=== PATIENT | male | born 1965 | race Caucasian/White ===

== ENCOUNTER 2017-04-24 08:14 | Day surgery (SDC) | payer OTHER ==
[~2017-04-24 08:14] MED LIST: Ketorolac 10 MG Tab PO PRN; Lactated Ringers 1,000 ML IV SCH; ceFAZolin 2 GM in Premix Bag 1 BAG IV SCH
--- NOTE | 2017-04-24 10:00 | PCM.PREANE ---
Preanesthetic Assessment - Procedure Proposed Procedure: Left shoulder arthroscopic repair - Anesthesia/Transfusion/Family Hx Anesthesia History: Prior Anesthesia Without Reaction Family History of Anesthesia Reaction: No Transfusion History: No Prior Transfusion(s) Intubation History: Unknown - Review of Systems General: No Symptoms Pulmonary: Other (smoker, occasional cough) Cardiovascular: No Symptoms Gastrointestinal: No Symptoms Neurological: Pre-Existing Deficit (pain of left arm due to injury) Other: Reports: None - Physical Assessment NPO Status Date: 04/23/17 NPO Status Time: 21:00 O2 Sat by Pulse Oximetry: 94 Respiratory Rate: 16 Vital Signs: Last Vital Signs Temp 98.6 F 04/24/17 09:14 Pulse 49 L 04/24/17 09:14 Resp 16 04/24/17 09:14 BP 127/93 H 04/24/17 09:14 Pulse Ox 94 L 04/24/17 09:14 Height: 6 ft 1 in Weight: 189 lb ASA Class: 2 Mental Status: Alert & Oriented x3 Airway Class: Mallampati = 2 Dentition: Reports: Normal Dentition Thyro-Mental Finger Breadths: 3 Mouth Opening Finger Breadths: 3 ROM/Head Extension: Limited/Partial Lungs: Clear to Auscultation, Normal Respiratory Effort Cardiovascular: Regular Rate, Regular Rhythm, No Murmurs - Allergies Allergies/Adverse Reactions: Allergies Allergy/AdvReac Type Severity Reaction Status Date / Time animal dander Allergy watery Verified 04/18/17 11:41 eyes/sneezing cat dander Allergy Itching Verified 03/25/17 10:19 kiwi Allergy Facial Verified 03/25/17 10:19 Swelling - Blood Blood Available: No Product(s) Available: None - Anesthesia Plan Pre-Op Medication Ordered: None - Acknowledgements Anesthesia Type Planned: General Anesthesia, Regional Block (planned to do at end procedure PRN) Pt an Appropriate Candidate for the Planned Anesthesia: Yes Alternatives and Risks of Anesthesia Discussed w Pt/Guardian: Yes Pt/Guardian Understands and Agrees with Anesthesia Plan: Yes Additional Comments: family at bedside with exam, interview and questions answered. PreAnesthesia Questionnaire HEENT History: Reports: Allergic Rhinitis Cardiovascular History: Reports: Heart Murmur, Other (See Below) Other Cardiovascular History: heart murmur as a child Gastrointestinal History: Reports: None Genitourinary History: Reports: None Musculoskeletal History: Reports: Arthritis, Fracture Other Musculoskeletal History: hx fx foot Neurological History: Reports: None - Past Surgical History Head Surgeries/Procedures: Reports: None GI Surgical History: Reports: Hernia, Inguinal Other GI Surgeries/Procedures: hx andrés inguinal hernia repair Male Surgical History: Reports: Vasectomy Neurological Surgical History: Reports: Lumbar Spine Other Neurological Surgeries/Procedures: hx back surgery - SUBSTANCE USE Smoking Status *Q: Current Every Day Smoker Tobacco Use Within Last Twelve Months: Cigarettes Days Per Week of Alcohol Use: 7 Number of Drinks Per Day: 2 Total Drinks Per Week: 14 Recreational Drug Use History: No - HOME MEDS Home Medications: Home Meds Acetaminophen [Tylenol Extra Strength] 2 tab PO ASDIRECTED PRN 04/18/17 [History ] Ibuprofen 3 tab PO ASDIRECTED PRN 04/18/17 [History] Naproxen Sodium [Aleve] 1 tab PO ASDIRECTED PRN 04/18/17 [History] - CURRENT (IN HOUSE) MEDS Current Meds: Current Medications Cefazolin Sodium/Dextrose 2 gm (/ Premix) 50 mls @ 100 mls/hr IV ONCALL MARITZA Lactated Ringer's (Ringers, Lactated) 1,000 mls @ 100 mls/hr IV ASDIRECTED MAIRTZA Last Admin: 04/24/17 08:45 Dose: 100 mls/hr Ketorolac Tromethamine (Toradol) 10 mg PO Q6H PRN PRN Reason: Pain Stop: 04/29/17 08:01
[2017-04-24] MEDS ORDERED: Propofol 200 MG/20 ML SDV ONE ×2 (10:35→12:02)
[2017-04-24] MEDS ORDERED: Lidocaine 2% 5 ML SDV ONE (10:35)
[2017-04-24] MEDS ORDERED: Ondansetron 4 MG/2 ML SDV ONE (10:36)
[2017-04-24] MEDS ORDERED: Ketorolac 30 MG/ML SDV ONE (10:36)
[2017-04-24] MEDS ORDERED: Succinylcholine/Normal Saline 200 MG/10 ML Syringe ONE (10:36)
[2017-04-24] MEDS ORDERED: Midazolam 1 MG/ML 2 ML SDV ONE (10:36)
[2017-04-24] MEDS ORDERED: fentaNYL 100 MCG/2 ML SDV ONE ×2 (10:36→11:52)
[2017-04-24] MEDS ORDERED: Bupivacaine 0.5% 10 ML SDV ONE (11:26)
[2017-04-24] MEDS ORDERED: Bupivacaine 25%/EPINEPHrine/PF 30 ML ONE (11:26)
[2017-04-24] MEDS ORDERED: hydrALAZINE 20 MG/ML SDV IVPUSH ONE (11:38)
--- NOTE | 2017-04-24 11:41 | PCM.POSTAN ---
POST ANESTHESIA ASSESSMENT - MENTAL STATUS Mental Status: Alert, Oriented - VITAL SIGNS Blood Pressure: 163/109 (will treat with apresoline) - RESPIRATORY Respiratory Status: Respiratory Rate WNL, Airway Patent, O2 Saturation Stable - CARDIOVASCULAR CV Status: Pulse Rate WNL, Blood Pressure Stable - GASTROINTESTINAL GI Status: No Symptoms - PAIN Pain Score: 9 (difficult to assess) - POST OP HYDRATION Hydration Status: Adequate & Stable
[2017-04-24] MEDS ORDERED: Acetaminophen/HYDROcodone 325-10 MG Tab PO PRN (13:27)
[2017-04-24] MEDS ORDERED: traMADol 50 MG Tab PO PRN (13:27)
--- NOTE | 2017-04-24 13:29 | PCM.OPNOTE ---
- General Post-Op/Procedure Note Date of Surgery/Procedure: 04/24/17 Operative Procedure(s): L shoulder arthroscopy with SAD, debridement of degenerative anterior labral tear, RTCR Post-Op Diagnosis: L shoulder impingement, degenerative anterior labral tear, RTC tear Anesthesia Technique: General ET Tube Primary Surgeon: Mary Ruiz Data Manager: Gely Rubio in mLs: 10 Condition: Good Free Text/Narrative:: #[id number]
[2017-04-24] MEDS ORDERED: fentaNYL 100 MCG/2 ML SDV IVPUSH PRN (13:45)
[2017-04-24] MEDS ORDERED: HYDROmorphone 2 MG/ML Syringe IVPUSH ONE (13:45)
--- NOTE | 2017-04-24 14:27 | PCM.POSTAN ---
POST ANESTHESIA ASSESSMENT - MENTAL STATUS Mental Status: Alert, Oriented - RESPIRATORY Respiratory Status: Respiratory Rate WNL, Airway Patent, O2 Saturation Stable - CARDIOVASCULAR CV Status: Pulse Rate WNL, Blood Pressure Stable - GASTROINTESTINAL GI Status: No Symptoms - PAIN Pain Score: 2 (numb in arm; s/p interscalene block) - POST OP HYDRATION Hydration Status: Adequate & Stable - OBSERVATIONS Free Text/Narrative:: to Phase II
--- NOTE | 2017-04-24 14:33 | PCM.SN ---
- Free Text/Narrative Note: Interscalene block with 0.375% bupivacaine (40 ml). sterile procedure with electrostim needle, negative aspiration throughout block placement, twitch via neurostimulation needle- good deltoid twitch. Block seems intact at this time... will await more wakefulness in him.
--- NOTE | 2017-04-24 16:18 | PCM48HPAN ---
Post Anesthesia Note - EVALUATION WITHIN 48HRS OF ANESTHETIC Vital Signs in Normal Range: Yes Patient Participated in Evaluation: Yes Respiratory Function Stable: Yes Airway Patent: Yes Cardiovascular Function Stable: Yes Hydration Status Stable: Yes Pain Control Satisfactory: Yes Nausea and Vomiting Control Satisfactory: Yes Mental Status Recovered: Yes - COMMENTS/OBSERVATIONS Free Text/Narrative:: to home with family with block pain relief.
--- NOTE | 2017-04-24 18:28 | OR ---
SURGEON: Mary Ruiz MD DATE OF PROCEDURE: 04/24/2017 PREOPERATIVE DIAGNOSES: 1. Left shoulder impingement syndrome. 2. Left shoulder rotator cuff tear. POSTOPERATIVE DIAGNOSES: 1. Left shoulder impingement syndrome. 2. Left shoulder rotator cuff tear. 3. Left shoulder degenerative anterior labral tear. PROCEDURES: Left shoulder arthroscopy with 1. Subacromial decompression with release of coracoacromial ligament and acromioplasty. 2. Limited debridement including debridement of degenerative anterior labral tear. 3. Arthroscopic rotator cuff repair surgeon. RADIOLOGY PHYSICIAN: Gely Rubio PA-C. ANESTHESIA: General. ESTIMATED BLOOD LOSS: 10 mL. TOURNIQUET TIME: 0 minutes. COMPLICATIONS: None. DVT PROPHYLAXIS: PAS boots to bilateral lower extremities. IMPLANTS USED: Two Arthrex 4.5 mm corkscrew anchors (Bio[employer]), 1 Arthrex 5.5 mm corkscrew anchor (Bio[employer]posite), and one Arthrex 4.75 mm SwiveLock anchor ([employer]). BRIEF HISTORY: Michael is a 52-year-old male, who sustained an injury to his left shoulder while at work. An MRI did confirm a tear of the rotator cuff. At that time, it was recommended that he undergo surgical treatment due to the acute nature of his injury. The risks and goals of the procedure were discussed with the patient and were documented preoperatively. He agreed to proceed. DESCRIPTION OF PROCEDURE: The patient was properly identified and brought to the operating room. He was transferred from the OR cart and placed on operating table in supine position. General anesthesia was administered. After adequate anesthesia was obtained, the patient was placed into a beach-chair position, care was taken to pad all bony prominences, his head was secured. The left upper extremity was then prepped in standard fashion using ChloraPrep solution. It was then sterilely draped. A time-out was performed to ensure correct site and procedure. Preoperative antibiotics were given. The surgical site had been marked preoperatively. The bone pen was made to identify the bony landmarks. Approximately 30 mL of normal saline was introduced into the glenohumeral joint. A posterior portal was established. Blunt trocar and cannula were introduced into the glenohumeral joint. Camera, inflow, and outflow were assembled. The rotator interval showed mild synovitis. The subscapularis was visualized. An anterior portal was then established. The subscapularis was probed and found to be intact. No loose bodies were identified in the subscapular recess. The biceps tendon was then identified. Its attachment to the superior glenoid appeared intact. There was no evidence of tearing. The biceps was pulled into the joint. He did have some small longitudinal fissures distally, however, the patient did not complain of any biceps pain preoperatively, and I elected to leave the biceps intact. The labrum was then inspected. Degenerative tear of the anterior labrum was identified. Electrocautery was used to perform debridement of this tear. The posterior labrum appeared intact. Both the glenoid and articular surface of the humeral head showed no signs of degeneration. The axillary pouch showed no loose bodies. The shoulder was then brought into an abducted and externally rotated position. The bare area was noted posteriorly. As I progressed forward, there was found to be a full-thickness tear of the anterior portion of the supraspinatus tendon. The arm was then brought back into a neutral position. Instruments were removed. We were removed from the glenohumeral joint. I then entered the subacromial space. A lateral portal was established. Using combination of the shaver and electrocautery, an extensive bursectomy was performed. The cortical acromial ligament was released off the anterior aspect of the acromion. A downsloping acromion was noted and acromioplasty was performed. This provided good decompression of the subacromial space. The rotator cuff was then inspected. A large crescentic tear a tear of the anterior portion of the supraspinatus was identified. I did use a cuff grasper and was able to easily reapproximate the cuff tendon to its footprint. A 5.0 mm sarika was used to perform the acromioplasty as well as roughen the surface just lateral to the articular surface for repair. Since the repair was quite large, I elected to place 3 corkscrew anchors. The first corkscrew anchor was placed anteriorly. The bone was quite good and the anchor did break. I removed a portion of the broken anchor. I was able to pull on the suture with quite a bit of force and no dislodgement of the anchor was noted from the bone. I elected to leave this in place. An additional anchor was placed just posterior to this without difficulty. The posterior anchor also showed sign of breakage with insertion, and I did change the trajectory of my awl. A 5.5 mm corkscrew anchor was placed into the posterior and lateral portion of the humeral head and this provided better pullout strength. The sutures were then tied in a [id number] fashion. The cuff was able to be reapproximated to the lateral footprint. Following this, I elected to incorporate sutures from both the anterior and posterior corkscrews into a lateral row SwiveLock, and this provided further compression of the rotator cuff to the footprint. At the completion, the repair was probed. It was found to be intact and nearly watertight. The instruments were then removed from the shoulder. It should be noted that another lateral portal was placed for suture management and passage of the sutures. I did use passport cannulas in both of the lateral portals to assist with the soft tissue and suture management. The portal sites were then closed with 3-0 nylon. Xeroform gauze was placed over the wound and a bulky dressing was applied. He was then placed back into a supine position. He was left under the care of Anesthesia for placement of the interscalene block. BERNIE / LAILA /[id number]
== END 2017-04-24 15:30 | disposition home or self-care (01) ==
LOC: MW.SDS 08:14 → MERGE 08:14 → EDSEX 09:30 → MW.SDS 15:30
PROVIDERS: ATTEND Orthopaedic Surgery
DX: M75.42 Impingement syndrome of left shoulder (principal); M75.122 Complete rotator cuff tear or rupture of left shoulder, not specified as traumatic; S43.492A Other sprain of left shoulder joint, initial encounter; F17.210 Nicotine dependence, cigarettes, uncomplicated; M19.90 Unspecified osteoarthritis, unspecified site; J30.81 Allergic rhinitis due to animal (cat) (dog) hair and dander; Z91.018 Allergy to other foods; Z98.890 Other specified postprocedural states
CPT/HCPCS: 29826; 29827; J0690; J1885; J2250; J2405; J3010; J7120; 01630; 64415; 88304; C1713; J2704

== ENCOUNTER 2019-08-19 16:16 | Emergency (ER) | payer OTHER, BC ==
[2019-08-19] MEDS ORDERED: diphenhydrAMINE 50 MG/ML SDV IM ONE (17:13)
--- NOTE | 2019-08-19 17:36 | EDM.PDOC ---
ED HPI GENERAL MEDICAL PROBLEM - General Chief Complaint: Allergic Reaction Stated Complaint: ALLERGIC REACTION Time Seen by Provider: 08/19/19 17:11 Source of Information: Reports: Patient History Limitations: Reports: No Limitations - History of Present Illness INITIAL COMMENTS - FREE TEXT/NARRATIVE: HISTORY AND PHYSICAL: History of present illness: Patient is a 54-year-old male who presents to the emergency room today with complaints of an allergic reaction to cat exposure. 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 He states anytime he is around cats he needs "a shot of Benadryl ". He states that he typically has to receive the IM Benadryl as the oral administration route is not as effective. He complains of itchy watery eyes and feeling like he has some slight swelling around the eyes. Although he was exposed to the cat he did not touch the cat and has been wearing his leather gloves. Patient denies any fever, chills, headache, change in vision, syncope or near syncope. Denies any chest pain, back pain, shortness of breath or cough. Denies any abdominal pain, nausea, vomiting, diarrhea, constipation or dysuria. Has not noted any blood in urine or stool. Patient has been eating and drinking appropriately. Review of systems: As per history of present illness and below otherwise all systems reviewed and negative. Past medical history: As per history of present illness and as reviewed below otherwise noncontributory. Surgical history: As per history of present illness and as reviewed below otherwise noncontributory. Social history: See social history for further information Family history: As per history of present illness and as reviewed below otherwise noncontributory. Physical exam: General: Well-developed and well-nourished 54-year-old male. Alert and oriented. Nontoxic appearing and in no acute distress. HEENT: Atraumatic, normocephalic, pupils equal and reactive bilaterally, negative for conjunctival pallor or scleral icterus, scleral injection bilaterally with clear watery drainage, mucous membranes moist, TMs normal bilaterally, throat clear, neck supple, nontender, trachea midline. No drooling or trismus noted. No meningeal signs. No hot potato voice noted. Lungs: Clear to auscultation, breath sounds equal bilaterally. Heart: S1S2, regular rate and rhythm without overt murmur Abdomen: Soft, nondistended, nontender. Skin: Intact, warm, dry. No lesions or rashes noted. Extremities: Atraumatic, moves all extremities per self without difficulty or deficits, negative for cords or calf pain. Neurovascular unremarkable. Neuro: Awake, alert, oriented. Cranial nerves II through XII unremarkable. Cerebellum unremarkable. Motor and sensory unremarkable throughout. Exam nonfocal. Notes: Patient declines wanting p.o. Benadryl. We will give him Benadryl IM. His physical exam is normal with the exception of allergy related symptoms from the cat dander exposure. Supportive care measures were reviewed and discussed. Voices understanding and is agreeable to plan of care. Denies any further questions or concerns at this time. Diagnostics: None Therapeutics: Benadryl IM Prescription: None Impression: Allergies, cat Plan: 1. Avoid triggers. 2. While symptomatic continue to routinely take Benadryl 50mg every 4-6 hours and Zantac 150mg twice daily. Take the Medrol dose pack as prescribed. 3. You may use topical calamine lotion, cool tempid oatmeal baths, Aveeno bath/ lotions. 4. Please follow up with your Primary care doctor as we discussed. Return to the ED as needed and as discussed. Definitive disposition and diagnosis as appropriate pending reevaluation and review of above. - Related Data Allergies Allergy/AdvReac Type Severity Reaction Status Date / Time animal dander Allergy watery Verified 08/19/19 17:00 eyes/sneezing cat dander Allergy Itching Verified 08/19/19 17:00 kiwi Allergy Facial Verified 08/19/19 17:00 Swelling Home Meds: Home Meds Ibuprofen 3 tab PO ASDIRECTED PRN 04/18/17 [History] Naproxen Sodium [Aleve] 1 tab PO ASDIRECTED PRN 04/18/17 [History] Hydrocodone/Acetaminophen [Girard 10-325 Tablet] 1 - 2 tab PO Q4H PRN #80 tablet 04/24/17 [Rx] traMADol [Ultram] 1 - 2 tab PO Q4H PRN #80 tablet 04/24/17 [Rx] Past Medical History HEENT History: Reports: Allergic Rhinitis Cardiovascular History: Reports: Heart Murmur, Other (See Below) Other Cardiovascular History: heart murmur as a child Respiratory History: Reports: None Gastrointestinal History: Reports: GERD, None Genitourinary History: Reports: None Musculoskeletal History: Reports: Arthritis, Fracture, Other (See Below) Other Musculoskeletal History: hx fx foot Neurological History: Reports: None Psychiatric History: Reports: None Endocrine/Metabolic History: Reports: None Hematologic History: Reports: None Immunologic History: Reports: None Oncologic (Cancer) History: Reports: None Dermatologic History: Reports: None - Infectious Disease History Infectious Disease History: Reports: None - Past Surgical History Head Surgeries/Procedures: Reports: None HEENT Surgical History: Reports: None Cardiovascular Surgical History: Reports: None Respiratory Surgical History: Reports: None GI Surgical History: Reports: None Male Surgical History: Reports: Vasectomy Endocrine Surgical History: Reports: None Neurological Surgical History: Reports: Discectomy, Lumbar Spine Musculoskeletal Surgical History: Reports: None Oncologic Surgical History: Reports: None Dermatological Surgical History: Reports: None Social & Family History - Family History Family Medical History: Noncontributory - Tobacco Use Smoking Status *Q: Current Every Day Smoker Years of Tobacco use: 33 Packs/Tins Daily: 0.7 - Caffeine Use Caffeine Use: Reports: Coffee - Recreational Drug Use Recreational Drug Use: No ED ROS ALLERGIC REACTION - Review of Systems Review Of Systems: Comprehensive ROS is negative, except as noted in HPI. ED EXAM GENERAL NO PERIP PULSE - Physical Exam Exam: See Below (See dictation) Course - Vital Signs Last Recorded V/S: Last Vital Signs Temp 96.8 F L 08/19/19 17:01 Pulse 68 08/19/19 17:01 Resp 18 08/19/19 17:01 BP 121/73 08/19/19 17:01 Pulse Ox 93 L 08/19/19 17:01 - Orders/Labs/Meds Meds: Medications Discontinued Medications Generic Name Dose Route Start Last Admin Trade Name Freq PRN Reason Stop Dose Admin Diphenhydramine HCl 50 mg 08/19/19 17:13 08/19/19 17:22 Benadryl IM 08/19/19 17:14 50 mg ONETIME ONE Administration Departure - Departure Time of Disposition: 17:36 Disposition: Home, Self-Care 01 Clinical Impression: Cat allergies - Discharge Information Instructions: Allergies, Adult, [id number] Referrals: Eliazar Barbour MD [Primary Care Provider] - Forms: ED Department Discharge Additional Instructions: The following information is given to patients seen in the emergency department who are being discharged to home. This information is to outline your options for follow-up care. We provide all patients seen in our emergency department with a follow-up referral. The need for follow-up, as well as the timing and circumstances, are variable depending upon the specifics of your emergency department visit. If you don't have a primary care physician on staff, we will provide you with a referral. We always advise you to contact your personal physician following an emergency department visit to inform them of the circumstance of the visit and for follow-up with them and/or the need for any referrals to a consulting specialist. The emergency department will also refer you to a specialist when appropriate. This referral assures that you have the opportunity for follow-up care with a specialist. All of these measure are taken in an effort to provide you with optimal care, which includes your follow-up. Under all circumstances we always encourage you to contact your private physician who remains a resource for coordinating your care. When calling for follow-up care, please make the office aware that this follow-up is from your recent emergency room visit. If for any reason you are refused follow-up, please contact the [facility] Emergency Department at and asked to speak to the emergency department charge nurse. [facility] [address] [place] [id number] [place] [address] 1. Avoid triggers. 2. While symptomatic continue to routinely take Benadryl 50mg every 4-6 hours and Zantac 150mg twice daily. Take the Medrol dose pack as prescribed. 3. You may use topical calamine lotion, cool tempid oatmeal baths, Aveeno bath/ lotions. 4. Please follow up with your Primary care doctor as we discussed. Return to the ED as needed and as discussed. Sepsis Event Note - Evaluation Sepsis Screening Result: No Definite Risk - Focused Exam Vital Signs: Vital Signs Temp Pulse Resp BP Pulse Ox 08/19/19 17:01 96.8 F L 68 18 121/73 93 L Date Exam was Performed: 08/19/19 Time Exam was Performed: 17:59
== END 2019-08-19 18:00 | disposition home or self-care (01) ==
LOC: MW.ED 16:16
DX: L23.81 Allergic contact dermatitis due to animal (cat) (dog) dander (principal); F17.210 Nicotine dependence, cigarettes, uncomplicated; Z91.048 Other nonmedicinal substance allergy status; Z91.018 Allergy to other foods
CPT/HCPCS: 96372; 99283; J1200; 99282

== ENCOUNTER 2020-01-06 17:49 | Emergency (ER) | payer OTHER, BC ==
--- NOTE | 2020-01-06 19:10 | EDM.PDOC ---
<Román Yatesd - Last Filed: 01/06/20 20:39> ED HPI GENERAL MEDICAL PROBLEM - General Chief Complaint: General Stated Complaint: HEADACHE, NOT FEELING WELL Time Seen by Provider: 01/06/20 18:14 - Related Data Allergies Allergy/AdvReac Type Severity Reaction Status Date / Time animal dander Allergy watery Verified 08/19/19 17:00 eyes/sneezing cat dander Allergy Itching Verified 08/19/19 17:00 kiwi Allergy Facial Verified 08/19/19 17:00 Swelling Home Meds: Home Meds Montelukast [Singulair] 4 mg PO DAILY PRN 01/06/20 [History] Course - Re-Assessments/Exams Free Text/Narrative Re-Assessment/Exam: 01/06/20 20:39 Signout received to me from Dr. Marx. In summary this is a 54-year-old gentleman who presents to the ER today secondary to shortness of breath and a slight cough and concern regarding coronavirus infection. Patient's family member has been exposed to coronavirus and patient presented to the ER secondary to generalized weakness and shortness of breath and further evaluation of the symptoms. Patient's ER work-up is significant for markedly elevated troponin le padmini of 0.198. Patient's coronavirus test is negative. The remainder of the patient's labs are all within normal limits. Patient's EKG does not show any acute ST segment elevation although there was some prominent T waves in leads V3 through V5. EKG has been repeated and there have been no changes in the patient's EKG while in the ED. Repeat troponin level was obtained secondary to the patient questioning the validity of the initial troponin. Patient second troponin is elevated at 0.221. Patient currently denies any Complaint of chest pain, nausea, vomiting, radiating pain, diaphoresis, exertional chest discomfort. Patient denies any history of lower extremity edema, PE, DVT. Patient reports he is extremely active and exercises. Patient has cardiac risk factors significant for tobacco use. After long conversation discussion with the patient, he is amenable to transfer to [facility] for further evaluation of his elevated troponin and his shortness of breath. Patient has been given aspirin, Nitropaste, O2. Patient currently is chest pain-free. Critical Care: The high probability of sudden, clinically significant deterioration in the patient's condition required the highest level of my preparedness to intervene urgently. The services I provided to this patient were to treat and/or prevent clinically significant deterioration. Services included the following: chart data review, reviewing nursing notes and/or old charts, documentation time, baby registry sales consultant collaboration regarding findings and treatment options, medication orders and management, direct patient care, vital sign assessments and ordering, interpreting and reviewing diagnostic studies/lab tests. Aggregate critical care time includes only time during which I was engaged inwork directly related to the patient's care, as described above, whether at the bedside or elsewhere in the Emergency Department. It did not include time spent performing other reported procedures or the services of residents, students, nurses or physician assistants. Critical Care Time: 35 minutes 01/06/20 20:48 8:49 PM: Case has been discussed with Dr. Lopez at [facility] and he is agreed to accept patient for transfer for further evaluation for cardiac work-up. Departure - Departure Time of Disposition: 20:43 Disposition: DC/Tfer to Acute Hospital 02 Condition: Good Clinical Impression: ME, Myocardial infarction - Discharge Information Referrals: Eliazar Barbour MD [Primary Care Provider] - Forms: ED Department Discharge <Daniel Marx - Last Filed: 01/07/20 07:04> ED HPI GENERAL MEDICAL PROBLEM - General Source of Information: Reports: Patient History Limitations: Reports: No Limitations - History of Present Illness INITIAL COMMENTS - FREE TEXT/NARRATIVE: 54-year-old male no past medical history presenting with shortness of breath and headache. 1 day history of the symptoms. 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 Reports the onset of mild dyspnea and headache this morning. Also reports an occasional dry cough. No fever, chills, sore throat, or chest discomfort. No history of VTE. Denies lower extremity swelling or pain, hemoptysis, history of cancer, recent immobilization or travel or surgery. Past Medical History - Past Health History Medical/Surgical History: Denies Medical/Surgical History HEENT History: Reports: Allergic Rhinitis Cardiovascular History: Reports: Heart Murmur, Other (See Below) Other Cardiovascular History: heart murmur as a child Respiratory History: Reports: None Gastrointestinal History: Reports: GERD Genitourinary History: Reports: None Musculoskeletal History: Reports: Arthritis, Fracture, Other (See Below) Other Musculoskeletal History: hx fx foot Neurological History: Reports: None Psychiatric History: Reports: None Endocrine/Metabolic History: Reports: None Hematologic History: Reports: None Immunologic History: Reports: None Oncologic (Cancer) History: Reports: None Dermatologic History: Reports: None - Infectious Disease History Infectious Disease History: Reports: None - Past Surgical History Head Surgeries/Procedures: Reports: None HEENT Surgical History: Reports: None Cardiovascular Surgical History: Reports: None Respiratory Surgical History: Reports: None Other GI Surgeries/Procedures: bilat hernia repair sx with mesh Male Surgical History: Reports: Vasectomy Endocrine Surgical History: Reports: None Neurological Surgical History: Reports: Discectomy, Lumbar Spine Musculoskeletal Surgical History: Reports: None Oncologic Surgical History: Reports: None Dermatological Surgical History: Reports: None Social & Family History - Family History Family Medical History: Noncontributory - Tobacco Use Smoking Status *Q: Current Every Day Smoker Tobacco Use Within Last Twelve Months: Cigarettes Years of Tobacco use: 30 Packs/Tins Daily: 1 - Caffeine Use Caffeine Use: Reports: Coffee, Soda - Recreational Drug Use Recreational Drug Use: No ED ROS GENERAL - Review of Systems Review Of Systems: See Below Constitutional: Denies: Fever, Chills Respiratory: Reports: Shortness of Breath, Cough Cardiovascular: Denies: Chest Pain, Edema Endocrine: Denies: Fatigue GI/Abdominal: Denies: Abdominal Pain, Nausea, Vomiting : Denies: Flank Pain Musculoskeletal: Denies: Back Pain Skin: Denies: Rash Neurological: Reports: Headache ED EXAM, GENERAL - Physical Exam Exam: See Below Free Text/Narrative:: Vital signs reviewed. Nursing notes reviewed. Constitutional: Awake, alert, non-distressed. Head: Normocephalic, atraumatic. Eyes: EOMI, conjunctiva normal, no discharge, no scleral icterus. Ears, Nose, Throat: External ears and nose normal, moist oral mucosa. Cardiovascular: 2+ radial pulse, capillary refill less than 2 seconds. Pulmonary: normal work of breathing, no accessory muscle use. Abdomen/GI: nondistended Musculoskeletal: No deformities. Integumentary: Appropriate color for ethnicity, warm, dry, no pallor or jaundice, no rash. Neurologic: Alert, answering questions appropriately, normal speech, no facial droop, moving all extremities well. Psychiatric: Appropriate mood and affect, normal thought process. EKG INTERPRETATION EKG Interpretation Comments: 12-Lead ECG Interpretation Acquired: 6:50 PM Rhythm: Sinus bradycardia Rate: 59 bpm [place]: Normal Intervals: Normal Ectopy: None Ischemic Changes: None apparent RV Strain: No obvious RV strain pattern. ST Segments/T-Waves: Biphasic T waves in lead aVL, prominent T waves in V3 through V5. Interpretation: Abnormal ECG Course - Vital Signs Text/Narrative:: Mildly hypoxic on arrival, [id number]% Differential diagnosis includes but is not limited to: Pneumonia, pneumothorax, congestive heart failure, COVID, acute coronary syndrome, pulmonary embolism, upper respiratory infection, etc. Twelve-lead EKG was obtained, showing prominent T waves in V4 through 5, biphasic T waves in lead aVL. No complaints of chest pain. Ordered labs and x- rays, these are pending at time of shift change. Signed out in person to my colleague Dr. Yates awaiting work-up - refer to his note for disposition. Last Recorded V/S: Last Vital Signs Temp 36.6 C 01/06/20 18:08 Pulse 55 L 01/06/20 20:06 Resp 16 01/06/20 20:06 BP 138/87 01/06/20 20:06 Pulse Ox 94 L 01/06/20 20:06 - Orders/Labs/Meds Orders: Active Orders 24 hr Category Date Time Status Cardiac Monitoring [RC] . DIRECTED Care 01/06/20 19:24 Active EKG Documentation Completion [RC] STAT Care 01/06/20 18:29 Active EKG Documentation Completion [RC] STAT Care 01/06/20 19:22 Active Pulse Oximetry [RC] ASDIRECTED Care 01/06/20 18:29 Active Pulse Oximetry [RC] ASDIRECTED Care 01/06/20 19:24 Active Isolation [COMM] Stat Oth 01/06/20 18:32 Active Saline Lock Insert [OM.PC] Stat Oth 01/06/20 19:24 Ordered Labs: Laboratory Tests 01/06/20 01/06/20 01/06/20 Range/Units 18:47 18:47 18:47 WBC 13.79 H (4.0-11.0) K/uL RBC 4.86 (4.50-5.90) M/uL Hgb 16.2 (13.0-17.0) g/dL Hct 46.8 (38.0-50.0) % MCV 96.3 (80.0-98.0) fL MCH 33.3 H (27.0-32.0) pg MCHC 34.6 (31.0-37.0) g/dL RDW Std Deviation 47.1 (28.0-62.0) fl RDW Coeff of Jessica 13 (11.0-15.0) % Plt Count 150 (150-400) K/uL MPV 10.90 (7.40-12.00) fL Neut % (Auto) 79.7 (48.0-80.0) % Lymph % (Auto) 10.5 L (16.0-40.0) % [place] % (Auto) 8.8 (0.0-15.0) % Eos % (Auto) 0.9 (0.0-7.0) % Baso % (Auto) 0.1 (0.0-1.5) % Neut # (Auto) 11.0 H (1.4-5.7) K/uL Lymph # (Auto) 1.5 (0.6-2.4) K/uL [place] # (Auto) 1.2 H (0.0-0.8) K/uL Eos # (Auto) 0.1 (0.0-0.7) K/uL Baso # (Auto) 0.0 (0.0-0.1) K/uL Nucleated RBC % 0.0 /100WBC Nucleated RBCs # 0 K/uL INR APTT (18.6-31.3) SEC D-Dimer, Quantitative 0.38 (0.0-0.50) mg/L FEU Sodium 135 L (136-148) mmol/L Potassium 3.8 (3.5-5.1) mmol/L Chloride 102 (98-107) mmol/L Carbon Dioxide 23.7 (21.0-32.0) mmol/L BUN 11 (7.0-18.0) mg/dL Creatinine 1.0 (0.8-1.3) mg/dL Est Cr Clr Drug Dosing 94.33 mL/min Estimated GFR (MDRD) > 60.0 ml/min Glucose 83 (74-106) mg/dL Calcium 8.6 (8.5-10.1) mg/dL Total Bilirubin (0.2-1.0) mg/dL Direct Bilirubin (0.0-0.5) mg/dL Indirect Bilirubin AST (15-37) IU/L ALT (14-63) IU/L Alkaline Phosphatase (46-116) U/L Troponin I 0.198 H* (0.000-0.056) ng/mL B-Natriuretic Peptide (<100) PG/ML Total Protein (6.4-8.2) g/dL Albumin (3.4-5.0) g/dL Globulin (2.6-4.0) g/dL Albumin/Globulin Ratio (0.9-1.6) TSH 3rd Generation (0.36-3.74) uIU/mL COVID-19 ([place]) (NEGATIVE) 01/06/20 01/06/20 01/06/20 Range/Units 18:47 18:47 18:47 WBC (4.0-11.0) K/uL RBC (4.50-5.90) M/uL Hgb (13.0-17.0) g/dL Hct (38.0-50.0) % MCV (80.0-98.0) fL MCH (27.0-32.0) pg MCHC (31.0-37.0) g/dL RDW Std Deviation (28.0-62.0) fl RDW Coeff of Jessica (11.0-15.0) % Plt Count (150-400) K/uL MPV (7.40-12.00) fL Neut % (Auto) (48.0-80.0) % Lymph % (Auto) (16.0-40.0) % [place] % (Auto) (0.0-15.0) % Eos % (Auto) (0.0-7.0) % Baso % (Auto) (0.0-1.5) % Neut # (Auto) (1.4-5.7) K/uL Lymph # (Auto) (0.6-2.4) K/uL [place] # (Auto) (0.0-0.8) K/uL Eos # (Auto) (0.0-0.7) K/uL Baso # (Auto) (0.0-0.1) K/uL Nucleated RBC % /100WBC Nucleated RBCs # K/uL INR APTT (18.6-31.3) SEC D-Dimer, Quantitative (0.0-0.50) mg/L FEU Sodium (136-148) mmol/L Potassium (3.5-5.1) mmol/L Chloride (98-107) mmol/L Carbon Dioxide (21.0-32.0) mmol/L BUN (7.0-18.0) mg/dL Creatinine (0.8-1.3) mg/dL Est Cr Clr Drug Dosing mL/min Estimated GFR (MDRD) ml/min Glucose (74-106) mg/dL Calcium (8.5-10.1) mg/dL Total Bilirubin 0.6 (0.2-1.0) mg/dL Direct Bilirubin 0.10 (0.0-0.5) mg/dL Indirect Bilirubin 0.50 AST 20 (15-37) IU/L ALT 29 (14-63) IU/L Alkaline Phosphatase 69 (46-116) U/L Troponin I (0.000-0.056) ng/mL B-Natriuretic Peptide 28 (<100) PG/ML Total Protein 7.5 (6.4-8.2) g/dL Albumin 3.9 (3.4-5.0) g/dL Globulin 3.6 (2.6-4.0) g/dL Albumin/Globulin Ratio 1.1 (0.9-1.6) TSH 3rd Generation 1.23 (0.36-3.74) uIU/mL COVID-19 ([place]) (NEGATIVE) 01/06/20 01/06/20 01/06/20 Range/Units 18:47 18:47 19:36 WBC (4.0-11.0) K/uL RBC (4.50-5.90) M/uL Hgb (13.0-17.0) g/dL Hct (38.0-50.0) % MCV (80.0-98.0) fL MCH (27.0-32.0) pg MCHC (31.0-37.0) g/dL RDW Std Deviation (28.0-62.0) fl RDW Coeff of Jessica (11.0-15.0) % Plt Count (150-400) K/uL MPV (7.40-12.00) fL Neut % (Auto) (48.0-80.0) % Lymph % (Auto) (16.0-40.0) % [place] % (Auto) (0.0-15.0) % Eos % (Auto) (0.0-7.0) % Baso % (Auto) (0.0-1.5) % Neut # (Auto) (1.4-5.7) K/uL Lymph # (Auto) (0.6-2.4) K/uL [place] # (Auto) (0.0-0.8) K/uL Eos # (Auto) (0.0-0.7) K/uL Baso # (Auto) (0.0-0.1) K/uL Nucleated RBC % /100WBC Nucleated RBCs # K/uL INR 1.00 APTT 28.2 (18.6-31.3) SEC D-Dimer, Quantitative (0.0-0.50) mg/L FEU Sodium (136-148) mmol/L Potassium (3.5-5.1) mmol/L Chloride (98-107) mmol/L Carbon Dioxide (21.0-32.0) mmol/L BUN (7.0-18.0) mg/dL Creatinine (0.8-1.3) mg/dL Est Cr Clr Drug Dosing mL/min Estimated GFR (MDRD) ml/min Glucose (74-106) mg/dL Calcium (8.5-10.1) mg/dL Total Bilirubin (0.2-1.0) mg/dL Direct Bilirubin (0.0-0.5) mg/dL Indirect Bilirubin AST (15-37) IU/L ALT (14-63) IU/L Alkaline Phosphatase (46-116) U/L Troponin I (0.000-0.056) ng/mL B-Natriuretic Peptide (<100) PG/ML Total Protein (6.4-8.2) g/dL Albumin (3.4-5.0) g/dL Globulin (2.6-4.0) g/dL Albumin/Globulin Ratio (0.9-1.6) TSH 3rd Generation (0.36-3.74) uIU/mL COVID-19 ([place]) NEGATIVE (NEGATIVE) 01/06/20 Range/Units 19:46 WBC (4.0-11.0) K/uL RBC (4.50-5.90) M/uL Hgb (13.0-17.0) g/dL Hct (38.0-50.0) % MCV (80.0-98.0) fL MCH (27.0-32.0) pg MCHC (31.0-37.0) g/dL RDW Std Deviation (28.0-62.0) fl RDW Coeff of Jessica (11.0-15.0) % Plt Count (150-400) K/uL MPV (7.40-12.00) fL Neut % (Auto) (48.0-80.0) % Lymph % (Auto) (16.0-40.0) % [place] % (Auto) (0.0-15.0) % Eos % (Auto) (0.0-7.0) % Baso % (Auto) (0.0-1.5) % Neut # (Auto) (1.4-5.7) K/uL Lymph # (Auto) (0.6-2.4) K/uL [place] # (Auto) (0.0-0.8) K/uL Eos # (Auto) (0.0-0.7) K/uL Baso # (Auto) (0.0-0.1) K/uL Nucleated RBC % /100WBC Nucleated RBCs # K/uL INR APTT (18.6-31.3) SEC D-Dimer, Quantitative (0.0-0.50) mg/L FEU Sodium (136-148) mmol/L Potassium (3.5-5.1) mmol/L Chloride (98-107) mmol/L Carbon Dioxide (21.0-32.0) mmol/L BUN (7.0-18.0) mg/dL Creatinine (0.8-1.3) mg/dL Est Cr Clr Drug Dosing mL/min Estimated GFR (MDRD) ml/min Glucose (74-106) mg/dL Calcium (8.5-10.1) mg/dL Total Bilirubin (0.2-1.0) mg/dL Direct Bilirubin (0.0-0.5) mg/dL Indirect Bilirubin AST (15-37) IU/L ALT (14-63) IU/L Alkaline Phosphatase (46-116) U/L Troponin I 0.221 H* (0.000-0.056) ng/mL B-Natriuretic Peptide (<100) PG/ML Total Protein (6.4-8.2) g/dL Albumin (3.4-5.0) g/dL Globulin (2.6-4.0) g/dL Albumin/Globulin Ratio (0.9-1.6) TSH 3rd Generation (0.36-3.74) uIU/mL COVID-19 ([place]) (NEGATIVE) Meds: Medications Discontinued Medications Generic Name Dose Route Start Last Admin Trade Name Freq PRN Reason Stop Dose Admin Aspirin 324 mg 01/06/20 19:21 01/06/20 19:41 Aspirin PO 01/06/20 19:22 324 mg ONETIME ONE Administration Heparin Sodium (Porcine) 5,000 units 01/06/20 21:02 01/06/20 21:13 Heparin Sodium IVPUSH 01/06/20 21:03 5,000 units ONETIME ONE Administration Sodium Chloride 1,000 mls @ 999 mls/hr 01/06/20 19:24 01/06/20 19:41 Normal Saline IV 01/06/20 20:24 999 mls/hr BOLUS ONE Administration Heparin Sodium/Sodium Chloride 25,000 unit in 500 mls @ 21.228 mls/hr 01/06/20 21:15 01/06/20 21:13 Heparin-1/2ns 25,000 Units/500 IV 12 units/kg/hr TITRATE MARITZA 21.228 mls/hr Administration Protocol 12 UNITS/KG/HR Heparin Sodium/Sodium Chloride Confirm 01/06/20 21:08 01/06/20 21:16 Heparin-1/2ns 25,000 Units/500 Administered 01/06/20 21:09 Not Given Dose 25,000 unit in 500 mls @ as directed IV .STK-MED ONE Nitroglycerin 1 gm 01/06/20 19:24 01/06/20 19:41 Nitro-Bid 2% TOP 01/06/20 19:25 1 gm ONETIME ONE Administration Sodium Chloride 2.5 ml 01/06/20 19:24 Saline Flush FLUSH ASDIRECTED PRN Keep Vein Open Sodium Chloride 10 ml 01/06/20 19:24 01/06/20 19:42 Saline Flush FLUSH 10 ml ASDIRECTED PRN Administration Keep Vein Open Sodium Chloride 2.5 ml 01/06/20 19:24 Saline Flush FLUSH ASDIRECTED PRN Keep Vein Open Sepsis Event Note (ED) - Evaluation Sepsis Screening Result: No Definite Risk - Focused Exam Vital Signs: Vital Signs Pulse Resp BP Pulse Ox 01/06/20 20:06 55 L 16 138/87 94 L - My Orders Last 24 Hours: My Active Orders 01/06/20 18:29 EKG Documentation Completion [RC] STAT Pulse Oximetry [RC] ASDIRECTED 01/06/20 18:32 Isolation [COMM] Stat - Assessment/Plan Last 24 Hours: My Active Orders 01/06/20 18:29 EKG Documentation Completion [RC] STAT Pulse Oximetry [RC] ASDIRECTED 01/06/20 18:32 Isolation [COMM] Stat
[2020-01-06 19:16] LABS: BLOOD UREA NITROGEN,BUN 11 mg/dL (7.0-18.0); CARBON DIOXIDE,CO2 23.7 mmol/L (21.0-32.0); CHLORIDE,CL 102 mmol/L (98-107); GLUCOSE RANDOM 83 mg/dL (74-106); POTASSIUM,K 3.8 mmol/L (3.5-5.1); SODIUM,NA 135 mmol/L (136-148)
[2020-01-06] MEDS ORDERED: Aspirin 81 MG Tab.Chew PO ONE (19:21)
[2020-01-06] MEDS ORDERED: Sodium Chloride 0.9% 10 ML Syringe FLUSH PRN (19:24)
[2020-01-06] MEDS ORDERED: Nitroglycerin 2% Oint 1 GM UD Packet TOP ONE (19:24)
[2020-01-06] MEDS ORDERED: Sodium Chloride 0.9% 1,000 ML IV ONE (19:24)
[2020-01-06] MEDS ORDERED: Sodium Chloride 0.9% 2.5 ML Syringe FLUSH PRN ×2 (19:24)
--- NOTE | 2020-01-06 19:31 | CR ---
Chest: Portable view of the chest was obtained. Comparison: No previous chest x-ray. Heart size and mediastinum are normal. Lungs are clear with no acute parenchymal change. Bony structures are grossly intact. Impression: 1. Nothing acute is appreciated on portable chest x-ray. Diagnostic code #1 This report was dictated in MDT
[2020-01-06 19:48] LABS: BILIRUBIN INDIRECT 0.5
[2020-01-06] MEDS ORDERED: Heparin Sodium 5,000 Units/ML Vial IVPUSH ONE (21:02)
[2020-01-06] MEDS ORDERED: Heparin Sod,Pork In 0.45% Nacl 25,000 UNIT/500 ML IV.SOLN IV ONE (21:08)
[2020-01-06] MEDS ORDERED: Heparin Sod,Pork In 0.45% Nacl 25,000 UNIT/500 ML IV.SOLN IV SCH (21:15)
== END 2020-01-06 21:24 ==
LOC: MW.ED 17:49
DX: I21.9 Acute myocardial infarction, unspecified (principal); F17.210 Nicotine dependence, cigarettes, uncomplicated; R00.1 Bradycardia, unspecified; Z79.899 Other long term (current) drug therapy; Z91.048 Other nonmedicinal substance allergy status; Z91.018 Allergy to other foods; Z20.828 Contact with and (suspected) exposure to other viral communicable diseases
CPT/HCPCS: 36415; 71045; 80048; 80076; 83880; 84443; 84484; 85025; 85379; 85610; 85730; 87635; 93005; 96374; 99285; A9270; J1644; J7030; U0002

== ENCOUNTER 2020-03-12 06:43 | Emergency (ER) | payer OTHER, BC ==
--- NOTE | 2020-03-12 07:08 | EDM.PDOC ---
ED HPI GENERAL MEDICAL PROBLEM - General Chief Complaint: Skin Complaint Stated Complaint: SLIVER IN RIGHT ARM Time Seen by Provider: 03/12/20 06:53 Source of Information: Reports: Patient History Limitations: Reports: No Limitations - History of Present Illness INITIAL COMMENTS - FREE TEXT/NARRATIVE: 54M no relevant PMHx presents for splinter stuck in R forearm. Patient believes he sustained injury while carrying some wood. No other injuries or problems reported. - Related Data Allergies Allergy/AdvReac Type Severity Reaction Status Date / Time animal dander Allergy watery Verified 03/12/20 07:04 eyes/sneezing cat dander Allergy Itching Verified 03/12/20 07:04 kiwi Allergy Facial Verified 03/12/20 07:04 Swelling Home Meds: Home Meds Montelukast [Singulair] 4 mg PO DAILY PRN 01/06/20 [History] Ticagrelor [Brilinta] 90 mg PO BID 03/12/20 [History] atorvaSTATin Calcium [Lipitor] 40 mg PO DAILY 03/12/20 [History] Past Medical History - Past Health History Medical/Surgical History: Denies Medical/Surgical History HEENT History: Reports: Allergic Rhinitis Cardiovascular History: Reports: Heart Murmur, Other (See Below) Other Cardiovascular History: heart murmur as a child Respiratory History: Reports: None Gastrointestinal History: Reports: GERD Genitourinary History: Reports: None Musculoskeletal History: Reports: Arthritis, Fracture, Other (See Below) Other Musculoskeletal History: hx fx foot Neurological History: Reports: None Psychiatric History: Reports: None Endocrine/Metabolic History: Reports: None Hematologic History: Reports: None Immunologic History: Reports: None Oncologic (Cancer) History: Reports: None Dermatologic History: Reports: None - Infectious Disease History Infectious Disease History: Reports: None - Past Surgical History Head Surgeries/Procedures: Reports: None HEENT Surgical History: Reports: None Cardiovascular Surgical History: Reports: None Respiratory Surgical History: Reports: None Other GI Surgeries/Procedures: bilat hernia repair sx with mesh Male Surgical History: Reports: Vasectomy Endocrine Surgical History: Reports: None Neurological Surgical History: Reports: Discectomy, Lumbar Spine Musculoskeletal Surgical History: Reports: None Oncologic Surgical History: Reports: None Dermatological Surgical History: Reports: None Social & Family History - Family History Family Medical History: Noncontributory - Caffeine Use Caffeine Use: Reports: Coffee, Soda ED ROS GENERAL - Review of Systems Review Of Systems: Comprehensive ROS is negative, except as noted in HPI. ED EXAM, SKIN/RASH Exam: See Below Exam Limited By: No Limitations General Appearance: Alert, WD/WN, No Apparent Distress Ears: Normal External Exam Nose: Normal Inspection Throat/Mouth: Normal Inspection, Normal Voice, No Airway Compromise Head: Atraumatic, Normocephalic Neck: Normal Inspection Respiratory/Chest: No Respiratory Distress, No Accessory Muscle Use Cardiovascular: Normal Peripheral Pulses Back Exam: Normal Inspection Extremities: Other (palpable 1-cm wooden splinter under subq tissue of R forearm) Neurological: Alert Psychiatric: Normal Affect Skin: Warm, Dry, Intact ED SKIN PROCEDURES - Foreign Body Removal Indication:: 1-cm wooden splinter in subq tissue of R forearm Consent Obtained:: Patient Performing Doctor:: Enzo Huertas Foreign Body Other Location Comment:: R forearm Anesthesia Type: Local Anesthesia Other:: 1% xylocaine w/ epi x3-cc Findings:: an 11 blade scalpel was used a small incision was made, a 1-cm wooden splitner was removed without complications the area was steristriped closed Complications:: No Course - Vital Signs Last Recorded V/S: Last Vital Signs Temp 97.2 F 03/12/20 07:01 Pulse 55 L 03/12/20 07:01 Resp 18 03/12/20 07:01 BP 125/71 03/12/20 07:01 Pulse Ox 98 03/12/20 07:01 - Orders/Labs/Meds Meds: Medications Discontinued Medications Generic Name Dose Route Start Last Admin Trade Name Amelia PRN Reason Stop Dose Admin Lidocaine/Epinephrine 10 ml 03/12/20 07:10 03/12/20 07:45 Xylocaine 1% With Epinephrine 1:100,000 INJECT 03/12/20 07:11 Not Given ONETIME ONE Lidocaine/Epinephrine Confirm 03/12/20 07:12 03/12/20 07:45 Xylocaine 1% With Epinephrine 1:100,000 Administered 03/12/20 07:13 Not Given Dose 20 ml .ROUTE .STK-MED ONE Lidocaine/Epinephrine 20 ml 03/12/20 07:13 03/12/20 07:49 Xylocaine 1% With Epinephrine 1:100,000 INJECT 03/12/20 07:14 20 ml ONETIME ONE Administration - Re-Assessments/Exams Free Text/Narrative Re-Assessment/Exam: 03/12/20 09:00 see procedure note. Patient to f/u with PMD PRN return precautions discussed Departure - Departure Time of Disposition: 07:35 Disposition: Home, Self-Care 01 Condition: Good Clinical Impression: Foreign body (FB) in soft tissue - Discharge Information Instructions: Skin Foreign Body Referrals: Eliazar Barbour MD [Primary Care Provider] - Forms: ED Department Discharge Additional Instructions: The following information is given to patients seen in the emergency department who are being discharged to home. This information is to outline your options for follow-up care. We provide all patients seen in our emergency department with a follow-up referral. The need for follow-up, as well as the timing and circumstances, are variable depending upon the specifics of your emergency department visit. If you don't have a primary care physician on staff, we will provide you with a referral. We always advise you to contact your personal physician following an emergency department visit to inform them of the circumstance of the visit and for follow-up with them and/or the need for any referrals to a consulting specialist. The emergency department will also refer you to a specialist when appropriate. This referral assures that you have the opportunity for follow-up care with a specialist. All of these measure are taken in an effort to provide you with optimal care, which includes your follow-up. Under all circumstances we always encourage you to contact your private physician who remains a resource for coordinating your care. When calling for follow-up care, please make the office aware that this follow-up is from your recent emergency room visit. If for any reason you are refused follow-up, please contact the [facility] Emergency Department at and asked to speak to the emergency department charge nurse. Please follow up with your primary care physician. If you do not have a primary care physician, see below: [facility] [address] [place] [id number] [facility] [address] [place] [address] Sepsis Event Note (ED) - Evaluation Sepsis Screening Result: No Definite Risk - Focused Exam Vital Signs: Vital Signs Temp Pulse Resp BP Pulse Ox 03/12/20 07:01 97.2 F 55 L 18 125/71 98
[2020-03-12] MEDS ORDERED: Lidocaine 1% with EPINEPHrine 1:100,000 10 ML MDV INJECT ONE (07:10)
[2020-03-12] MEDS ORDERED: Lidocaine 1% with EPINEPHrine 1:100,000 20 ML MDV ONE (07:12)
[2020-03-12] MEDS ORDERED: Lidocaine 1% with EPINEPHrine 1:100,000 20 ML MDV INJECT ONE (07:13)
== END 2020-03-12 07:49 | disposition home or self-care (01) ==
LOC: MW.ED 06:43
DX: S50.851A Superficial foreign body of right forearm, initial encounter (principal); Z91.048 Other nonmedicinal substance allergy status; Z91.018 Allergy to other foods; W45.8XXA Other foreign body or object entering through skin, initial encounter
CPT/HCPCS: 10120; 99282; 99283-25

== ENCOUNTER 2024-02-29 14:12 | Emergency (ER) | payer BC ==
[2024-02-29] MEDS: Sodium Chloride 0.9% 1,000 ML IV ONE (15:07)
[2024-02-29 15:16] LABS: BASOPHILS ABSOLUTE AUTO 0.04 K/uL (0.00-0.20); BASOPHILS PERCENT AUTO 0.9 % (0.0-1.0); EOSINOPHILS ABSOLUTE AUTO 0.13 K/uL (0.00-0.45); EOSINOPHILS PERCENT AUTO 2.9 % (0.0-6.0); HEMOGLOBIN 16.8 g/dL (14.0-18.0); IMMATURE GRAN ABSOLUTE AUTO 0.01 K/uL (0.00-0.05); IMMATURE GRAN PERCENT AUTO 0.2 % (0.0-0.4); LYMPHOCYTES ABSOLUTE AUTO 1.51 K/uL (1.00-4.80); LYMPHOCYTES PERCENT AUTO 33.7 % (24.0-44.0); MEAN CORPUSCULAR HEMOGLOBIN 33.5 pg (28.0-32.0); MEAN CORPUSCULAR VOLUME 95.6 fL (83.0-99.0); MONOCYTES ABSOLUTE AUTO 0.53 K/uL (0.00-0.80); MONOCYTES PERCENT AUTO 11.8 % (0.0-8.0); NEUTROPHILS ABSOLUTE AUTO 2.26 K/uL (1.80-7.70); NEUTROPHILS PERCENT AUTO 50.5 % (41.0-71.0); PLATELET COUNT,PLT 164 K/uL (150-400); RED BLOOD CELL COUNT 5.02 M/uL (4.52-5.90); WHITE BLOOD CELL COUNT,WBC 4.48 K/uL (3.9-11.3)
[2024-02-29 15:43] LABS: BILIRUBIN TOTAL 0.3 mg/dL (0.2-1.0); CALCIUM 9.2 mg/dL (8.5-10.1); CARBON DIOXIDE,CO2 26.8 mmol/L (21.0-32.0); CREATININE 1.1 mg/dL (0.8-1.3); EST CRCL DRUG DOSING (CG) 81.72 mL/min
== END 2024-02-29 16:51 | disposition home or self-care (01) ==
LOC: MW.ED 14:12
DX: J06.9 Acute upper respiratory infection, unspecified (principal); F17.210 Nicotine dependence, cigarettes, uncomplicated; Z79.82 Long term (current) use of aspirin; Z91.018 Allergy to other foods; Z91.09 Other allergy status, other than to drugs and biological substances; Z75.8 Other problems related to medical facilities and other health care
CPT/HCPCS: 36415; 71045; 80053; 83690; 83880; 84484; 85025; 93005; 96360; 99284; J7030; 99282

== ENCOUNTER 2024-11-24 16:16 | Emergency (ER) | payer OTHER, BC ==
[2024-11-24 16:49] LABS: BASOPHILS ABSOLUTE AUTO 0.05 K/uL (0.00-0.20); BASOPHILS PERCENT AUTO 0.8 % (0.0-1.0); EOSINOPHILS ABSOLUTE AUTO 0.04 K/uL (0.00-0.45); EOSINOPHILS PERCENT AUTO 0.6 % (0.0-6.0); HEMATOCRIT 45.3 % (42.0-52.0); HEMOGLOBIN 15.8 g/dL (14.0-18.0); IMMATURE GRAN ABSOLUTE AUTO 0.02 K/uL (0.00-0.05); IMMATURE GRAN PERCENT AUTO 0.3 % (0.0-0.4); LYMPHOCYTES PERCENT AUTO 18.6 % (24.0-44.0); MEAN CORPUSCULAR HEMOGLOBIN 33.8 pg (28.0-32.0); MEAN CORPUSCULAR HGB CONC 34.9 g/dL (32.0-36.0); MEAN CORPUSCULAR VOLUME 96.8 fL (83.0-99.0); MEAN PLATELET VOLUME 10.6 fL (9.4-12.4); MONOCYTES ABSOLUTE AUTO 0.43 K/uL (0.00-0.80); MONOCYTES PERCENT AUTO 6.7 % (0.0-8.0); PLATELET COUNT,PLT 147 K/uL (150-400); RED BLOOD CELL COUNT 4.68 M/uL (4.52-5.90); WHITE BLOOD CELL COUNT,WBC 6.44 K/uL (3.9-11.3)
[2024-11-24] MEDS: Sodium Chloride 0.9% 2,000 ML IV ONE (16:50)
[2024-11-24 17:14] LABS: A/G RATIO 1.1 (0.9-1.6); ALBUMIN 3.7 g/dL (3.4-5.0); BILIRUBIN TOTAL 0.3 mg/dL (0.2-1.0); CALCIUM 8.5 mg/dL (8.5-10.1); CARBON DIOXIDE,CO2 23.4 mmol/L (21.0-32.0); CREATININE 1.4 mg/dL (0.8-1.3); EST CRCL DRUG DOSING (CG) 63.41 mL/min; MAGNESIUM 1.7 mg/dL (1.8-2.4); POTASSIUM,K 3.9 mmol/L (3.5-5.1)
[2024-11-24 17:18] LABS: APPEARANCE,URINE CLEAR; BILIRUBIN,URINE NEGATIVE (NEGATIVE); COLOR,URINE YELLOW; GLUCOSE,URINE NEGATIVE (NEGATIVE); KETONES,URINE 40 mg/dL (NEGATIVE); LEUKOCYTE ESTERASE,URINE NEGATIVE (NEGATIVE); NITRITE,URINE NEGATIVE (NEGATIVE); OCCULT BLOOD,URINE NEGATIVE (NEGATIVE); PH,URINE 5.5 (5.0-8.0); PROTEIN,URINE NEGATIVE (NEGATIVE); UROBILINOGEN,URINE 0.2 EU/dL (<2.0)
[2024-11-24 17:19] LABS: LACTIC ACID 1.9 mmol/L (0.4-2.0)
[2024-11-24] MEDS: Magnesium Oxide 400 MG Tab PO ONE (20:00)
== END 2024-11-24 20:04 | disposition home or self-care (01) ==
LOC: MW.ED 16:16
DX: E86.0 Dehydration (principal); I25.2 Old myocardial infarction; F17.210 Nicotine dependence, cigarettes, uncomplicated; Z91.048 Other nonmedicinal substance allergy status; Z91.018 Allergy to other foods; Z79.82 Long term (current) use of aspirin
CPT/HCPCS: 36415; 70450; 71045; 80053; 81003; 82550; 83605; 83690; 83735; 84484; 85025; 93005; 96360; 96361; 99285; A9270; J7030; 93010; 99284